=== PATIENT | male | born 1995 | race Caucasian/White ===

== ENCOUNTER 2021-02-24 07:48 | Emergency (ER) | payer MEDICAID, OTHER ==
[~2021-02-24] VITALS: Ht 175.3 cm; Wt 63.7 kg
[2021-02-24] MEDS ORDERED: ONDANSETRON 2MG/ML, 2ML IVPush ONE (08:00)
[2021-02-24] MEDS ORDERED: SODIUM CHLORIDE 0.9% 1,000ML IVBOLUS ONE ×2 (08:00→10:30)
[2021-02-24] MEDS ORDERED: ONDANSETRON 2MG/ML, 2ML ONE (08:06)
[2021-02-24] MEDS ORDERED: MORPHINE SULFATE 4 MG/ML, 1ML ONE ×3 (08:07→09:57)
[2021-02-24] MEDS: MORPHINE SULFATE 4 MG/ML, 1ML IVPush PRN ×2 (08:09→09:04)
--- NOTE | 2021-02-24 08:14 | NUR ---
PT HAS CO ABDOMINAL PAIN UPPER QUADRANTS W CRAMPING, N/V/D. SYMPTOMS STARTED LAST NIGHT AFTER DINNER. IVF, MEDICATED PER ORDERS. LAB SENT
[2021-02-24 08:24] LABS: BASOPHILS % (AUTO) 0 % (0-1); EOSINOPHILS % (AUTO) 0 % (1-7); LYMPHOCYTES % (AUTO) 3 % (22-44); MEAN CORPUSCULAR HEMOGLOBIN 28.4 pg (27.5-34.5); MEAN CORPUSCULAR HGB CONC 34.1 g/dL (33.2-36.2); MEAN PLATELET VOLUME 8.5 fL (7.4-10.4); MONOCYTES % (AUTO) 8 % (2-9); NEUTROPHILS % (AUTO) 88 % (42-75); PLATELET COUNT 223 x10^3/uL (130-400); RED BLOOD COUNT 6.93 x10^6/uL (4.38-5.82); RED CELL DISTRIBUTION WIDTH 14.4 % (9.4-14.8)
[2021-02-24 08:26] LABS: MD NO
[2021-02-24] MEDS ORDERED: PLEASE ENTER ALLERGIES MC SCH (08:30)
[2021-02-24 08:35] LABS: ALANINE AMINOTRANSFERASE 21 U/L (12-78); ALBUMIN 5.5 g/dL (3.4-5.0); ANION GAP 12 mmol/L (5-15); CALCIUM 10.2 mg/dL (8.5-10.1); CHLORIDE 106 mmol/L (98-107)
[2021-02-24 08:37] LABS: ALKALINE PHOSPHATASE 75 U/L (45-117); BILIRUBIN,TOTAL 2.9 mg/dL (0.2-1.0); TOTAL PROTEIN 9.2 g/dL (6.4-8.2)
[2021-02-24] MEDS ORDERED: LORazepam 2 MG/ML, 1ML IVPush ONE (09:00)
[2021-02-24] MEDS ORDERED: MORPHINE SULFATE 4 MG/ML, 1ML IVPush ONE (10:00)
--- NOTE | 2021-02-24 10:05 | NUR ---
MEDICATED FOR PAIN, SHARP INTERMITTENT PAIN IN ABDOMEN.
--- NOTE | 2021-02-24 10:39 | NUR ---
PT STATES PAIN IS BETTER, SECOND LITER NS INFUSING. VSS
[2021-02-24 10:47] VITALS: BP 116/78
--- NOTE | 2021-02-24 11:18 | NUR ---
Patient given discharge instructions and they have confirmed that they understand the instructions. Patient ambulatory with steady gait.
== END 2021-02-24 11:20 | disposition home or self-care (01) ==
LOC: ED 09:08
DX: D64.9 Anemia, unspecified (principal); R10.13 Epigastric pain; R11.2 Nausea with vomiting, unspecified; E86.0 Dehydration; K52.9 Noninfective gastroenteritis and colitis, unspecified
CPT/HCPCS: 36415; 76700; 80053; 83690; 85025; 96361; 96374; 96375; 96376; 99284; J2270; J2405; J7030